=== PATIENT | male | born 1965 | race Caucasian/White ===

== ENCOUNTER 2019-04-12 13:20 | Emergency (ER) | payer OTHER ==
[~2019-04-12] VITALS: Ht 188 cm; Wt 123.4 kg
[2019-04-12] MEDS ORDERED: NORVASC 2.5 MG2.5 M1 PO (13:38)
[2019-04-12] MEDS ORDERED: LISINOPRIL-HCT1 EAC1 PO (13:39)
[2019-04-12] MEDS ORDERED: CARVEDILOL12.5 MG PO (13:39)
[2019-04-12] MEDS ORDERED: LISINOPRIL-HCT1 EAC2 PO (13:39)
[2019-04-12 13:50] LABS: URINE BILIRUBIN NEGATIVE (Negative); URINE BLOOD 1+ (Negative); URINE CLARITY CLEAR; URINE COLOR YELLOW; URINE GLUCOSE-RANDOM NEGATIVE (Negative); URINE KETONES NEGATIVE (Negative); URINE LEUKOCYTES-REFLEX NEGATIVE (Negative); URINE NITRITE-REFLEX NEGATIVE (Negative); URINE PROTEIN TRACE (Negative); URINE SPECIFIC GRAVITY 1.025 (1.005-1.030); URINE UROBILINOGEN 0.2 E.U./dl (0.2-1.0)
[2019-04-12 13:56] LABS: BACTERIA-REFLEX 1-9 Few /HPF (None Seen); CASTS None Seen /LPF (None Seen); CRYSTALS None Seen /LPF (None Seen); MUCUS >6 Heavy strn/LPF (None Seen); SQUAMOUS 0-3 Few /LPF (0-3); URINE RBC 3-10 Few /HPF (0-2); URINE WBC-REFLEX 0-5 Rare /HPF (0-5)
[2019-04-12 13:57] LABS: INFLUENZA A ANTIGEN Positive (Negative); INFLUENZA B ANTIGEN Negative (Negative)
[2019-04-12] MEDS ORDERED: MEDROLDOSEPACK PO (14:47)
[2019-04-12 14:56] VITALS: BP 123/59
== END 2019-04-12 14:56 | disposition home or self-care (01) ==
LOC: M.ERS 13:20
PROVIDERS: Family Medicine
DX: J10.1 Influenza due to other identified influenza virus with other respiratory manifestations (principal); I10 Essential (primary) hypertension; G47.30 Sleep apnea, unspecified